=== PATIENT | male | born 2000 | race Caucasian/White ===

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

== ENCOUNTER 2020-10-05 08:24 | Emergency (ER) | payer MEDICAID ==
[~2020-10-05] VITALS: Ht 177.8 cm; Wt 114.8 kg
[2020-10-05 08:32] VITALS: Ht 177.8 cm; Wt 114.8 kg
[2020-10-05 10:17] VITALS: BP 156/91
== END 2020-10-05 10:14 | disposition home or self-care (01) ==
LOC: ED 08:24
DX: L05.91 Pilonidal cyst without abscess (principal)
CPT/HCPCS: J1885

== ENCOUNTER 2020-10-07 09:11 | Emergency (ER) | payer MEDICAID ==
[~2020-10-07] VITALS: Ht 177.8 cm; Wt 114.8 kg
[2020-10-07 09:43] VITALS: Ht 177.8 cm; Wt 114.8 kg
[2020-10-07 10:43] VITALS: BP 105/51
== END 2020-10-07 10:43 | disposition home or self-care (01) ==
LOC: ED 09:11
DX: L05.01 Pilonidal cyst with abscess (principal)